=== PATIENT | female | born 1955 | race Caucasian/White ===

== ENCOUNTER → 2016-07-31 | Outpatient (CLI) | payer OTHER | LOC: BMCIMAGING 17:11 | PROVIDERS: ATTEND Emergency Medicine | DX: M25.521 Pain in right elbow (principal); Y93.02 Activity, running; W19.XXXA Unspecified fall, initial encounter; R93.6 Abnormal findings on diagnostic imaging of limbs ==

== ENCOUNTER 2016-08-06 21:12 | Emergency (ER) | payer OTHER ==
[2016-08-06 21:26] VITALS: RESP 16; TEMP 97.3
--- NOTE | 2016-08-06 22:20 | EDPHY ---
H & P Stated Complaint: infected R elbow abrasion Source: Patient Exam Limitations: No limitations - Personal History Current Tetanus/Diphtheria Vaccine: No - Medical/Surgical History Hx Asthma: Yes Hx Chronic Respiratory Disease: No Hx Diabetes: No Hx Cardiac Disease: No Hx Renal Disease: No Hx Cirrhosis: No Hx Alcoholism: No Hx HIV/AIDS: No Hx Splenectomy or Spleen Trauma: No Other PMH: depression, empyema - Social History Smoking Status: Former smoker Time Seen by Provider: 08/06/16 21:27 HPI/ROS: CHIEF COMPLAINT: right elbow pain HISTORY OF PRESENT ILLNESS: 60-year-old female presents emergency department complaining of worsening right elbow pain. Patient tripped fell trail running 6 days ago and immediate right elbow pain with abrasions. She reports she was seen at an outside urgent care and had an x-ray showed a possible fracture. Patient states today her pain, redness and swelling increased significantly. She reports purulent drainage from her abrasion. Patient reports mild chills, no fevers, no nausea or vomiting. She denies pain in her wrist or shoulder. She has not been taking antibiotics. REVIEW OF SYSTEMS: A comprehensive 10 point review of systems is otherwise negative aside from elements mentioned in the history of present illness. (Joan Sesay) - Physical Exam Exam: GEN: Awake, alert, oriented, no acute distress RESP/CARDIAC: Clear to auscultation, regular cardiac rate and rhythm MSK: Right elbow lacks 10 degrees of flexion and 10 degrees extension, erythema , pain and swelling with abrasions to medial aspect of elbow with surrounding erythema. 2+ radial pulses. No wrist or shoulder tenderness to palpation. (Joan Sesay) Constitutional: Initial Vital Signs Temperature (C) 36.3 C 08/06/16 21:22 Heart Rate 48 L 08/06/16 21:22 Respiratory Rate 16 08/06/16 21:22 Blood Pressure 123/73 H 08/06/16 21:22 O2 Sat (%) 96 08/06/16 21:22 O2 Delivery Mode Room Air Allergies/Adverse Reactions: Penicillins Allergy (Verified 08/06/16 21:22) Home Medications: Medication Instructions Recorded Cephalexin [Keflex] 500 mg PO QID 5 Days 08/06/16 Progesterone 08/06/16 Sertraline HCl 08/06/16 Medical Decision Making ED Course/Re-evaluation: IV established, CBC and chemistry panel obtained, x-ray ordered of right elbow. CBC and chemistry panel are unremarkable, x-ray shows a radial head fracture, no soft tissue gas. Patient is given 1 dose of IV Ancef. She is discharged home with a prescription for Keflex. I have encouraged warm compresses 5 times a day. Patient agrees to follow up with her primary care doctor on Monday for re-evaluation, she is given strict return precautions for any worsening symptoms. (Joan Sesay) Differential Diagnosis: Diagnosis considered but not limited to, fracture, cellulitis, necrotizing fasciitis, foreign body (Joan Sesay) - Data Points Laboratory Results: Laboratory Results 08/06/16 22:30 08/06/16 22:30 Medications Given: Discontinued Medications Cephalexin (Keflex 500 Mg Prepack#4) 1 btl TAKEHOME EDNOW ONE PRN Reason: Protocol Stop: 08/06/16 23:26 Last Admin: 08/06/16 23:52 Dose: 1 btl Diphtheria/Tetanus/Acell Pertussis (Boostrix) 0.5 ml IM .ONCE ONE Stop: 08/06/16 23:14 Last Admin: 08/06/16 23:17 Dose: 0.5 ml Cefazolin Sodium/Dextrose (Ancef 1 Gm (Premix)) 50 mls @ 200 mls/hr IV EDNOW ONE PRN Reason: Protocol Stop: 08/06/16 22:36 Last Admin: 08/06/16 22:36 Dose: 50 mls Departure - Departure Disposition: Home, Routine, Self-Care Clinical Impression: Cellulitis of right elbow, Right radial head fracture Condition: Good Instructions: Cephalexin (By mouth), Elbow Fracture (ED), Cellulitis (ED) Additional Instructions: Warm compresses to right elbow 5 times a day for 5-10 minutes, take 500 mg of Keflex 4 times a day for 5 days. Follow-up with your primary care doctor on Monday for re-evaluation. Return to the emergency department immediately worsening redness, increased pain or swelling, fevers, new symptoms or concerns. Referrals: Eryn Willams MD [Primary Care Provider] - As per Instructions Prescriptions: Cephalexin [Keflex] 500 mg PO QID 5 Days
[2016-08-06 22:46] LABS: % IMMATURE GRANULYOCYTES 0.3 % (0.0-1.1); ABSOLUTE IMMATURE GRANULOCYTES 0.02 10^3/uL (0.00-0.10); ADD DIFF? NO; ADD MORPH? NO; ADD SCAN? NO; ATYPICAL LYMPHOCYTE FLAG 0 (0-99); FRAGMENT RBC FLAG 0 (0-99); HEMATOCRIT 44.3 % (38.0-47.0); LEFT SHIFT FLG 0 (0-99); LIPEMIA HEMOLYSIS FLAG 90 (0-99); MEAN CELL HEMOGLOBIN 32.5 pg (27.9-34.1); MEAN CELL HEMOGLOBIN CONCENTR. 33.9 g/dL (32.4-36.7); MEAN CELL VOLUME 96.1 fL (81.5-99.8); PLATELET CLUMPS FLAG 50 (0-99); PLATELET COUNT 237 10^3/uL (150-400); RED BLOOD CELL COUNT 4.61 10^6/uL (4.18-5.33)
[2016-08-06 22:53] LABS: ANION GAP 12 mEq/L (8-16); CALCIUM 9.6 mg/dL (8.5-10.4); CARBON DIOXIDE 23 mEq/l (22-31); CHLORIDE 108 mEq/L (97-110); CREATININE 0.8 mg/dL (0.6-1.0); GLOMERULAR FILTRATION RATE > 60; GLUCOSE 72 mg/dL (70-100); POTASSIUM 4.2 mEq/L (3.5-5.2); SODIUM 143 mEq/L (134-144)
[2016-08-06] MEDS ORDERED: TDAP ADULT 0.5 ML INJ (BOOSTRIX) IM ONE (23:13)
[2016-08-06] MEDS ORDERED: CEPHALEXIN 500MG PREPACK#4 BTL TAKEHOME ONE (23:25)
[2016-08-06 23:54] VITALS: BP 110/77; PULSE 61; O2SAT 99
== END 2016-08-06 23:54 | disposition home or self-care (01) ==
DX: S52.121A Displaced fracture of head of right radius, initial encounter for closed fracture (principal); L03.113 Cellulitis of right upper limb; J45.909 Unspecified asthma, uncomplicated; Z87.891 Personal history of nicotine dependence; Z23 Encounter for immunization; W01.0XXA Fall on same level from slipping, tripping and stumbling without subsequent striking against object, initial encounter; Y99.8 Other external cause status; Y93.02 Activity, running
CPT/HCPCS: 96374; A4565; J0690

== ENCOUNTER → 2018-02-02 | Outpatient (CLI) | payer OTHER | LOC: BMCIMAGING 09:14 | PROVIDERS: ATTEND Family Medicine | DX: Z12.31 Encounter for screening mammogram for malignant neoplasm of breast (principal) ==